=== PATIENT | male | born 1975 | race Caucasian/White ===

== ENCOUNTER 2022-09-06 10:33 | Emergency (ER) | payer OTHER ==
[2022-09-06] MEDS ORDERED: HYDROCODONE/APAP 7.5/325 MG TAB ONE (10:55)
[2022-09-06] MEDS ORDERED: BACI/NEOMYCIN/POLY OINT 15GM TOP ONE (10:55)
[2022-09-06] MEDS ORDERED: LIDOCAINE 1% 20 ML MDV ONE (10:55)
[2022-09-06] MEDS ORDERED: TETANUS & DIPHTHERIA TOX,ADULT 0.5 ML VIAL ONE (10:56)
--- NOTE | 2022-09-06 11:58 | RAD REPORT ---
EXAM DESCRIPTION: RAD - Hand Left 3 View - 09/06/2022 11:44 am CLINICAL HISTORY: lac, ?FB COMPARISON: No comparisons FINDINGS/IMPRESSION: No acute fracture. No malalignment. No significant focal degenerative changes.
[2022-09-06] MEDS ORDERED: DERMABOND SKIN ADHESIVE TOP ONE (12:38)
[2022-09-06] MEDS ORDERED: CEPHALEXIN 250 MG CAP ONE (12:49)
--- NOTE | 2022-09-06 13:11 | EDPHYS ---
Physician Documentation [facility] Name: Brendon Charles Age: 47 yrs Sex: Male : 1975 Arrival Date: 09/06/2022 Time: 10:33 Bed 4 Private MD: ED Physician Ata Kearney HPI: 09/06 10:41 This 47 yrs old Male presents to ER via EMS with complaints of L hand lac . jr11 10:41 Patient is a 47-year-old male that is right-hand dominant, tetanus over 10 years here jr11 with a laceration to his left hand. [place], tripped and fell and lacerated his left hand on a sharp brake/rock. Complains of mild to moderate pain to the laceration area, per EMS, was bleeding significantly but they got it to stop with a partial tourniquet meaning they did not blow it up all the way just with mild pressure. Denies any other injuries, no blood thinners no headache denies any other complaints. Historical: - Allergies: 10:38 No Known Allergies; bp - Home Meds: 10:38 None [Active]; bp - PMHx: 10:38 None; bp - Immunization history:: Adult Immunizations up to date. - Social history:: Smoking status: Patient denies any tobacco usage or history of. ROS: 10:41 All other systems are negative. jr11 Exam: 10:41 Constitutional: This is a well developed, well nourished patient who is awake, alert, jr11 and in no acute distress. Head/Face: Normocephalic, atraumatic. Eyes: Extra-ocular motions intact. Lids and lashes normal. Conjunctiva and sclera are non-icteric and not injected. Cornea within normal limits. Periorbital areas with no swelling, redness, or edema. ENT: Nares patent. No nasal discharge, no septal abnormalities noted. Oropharynx with no redness, swelling, or masses, exudates, or evidence of obstruction, uvula midline. Mucous membranes moist. Neck: Trachea midline, no thyromegaly or masses palpated, and no cervical lymphadenopathy. Supple, full range of motion without nuchal rigidity, or vertebral point tenderness. No Meningismus. Cardiovascular: Regular rate and rhythm with a normal S1 and S2. No gallops, murmurs, or rubs. Normal PMI, no JVD. No pulse deficits. Abdomen/GI: Soft, non-tender, with normal bowel sounds. No distension or tympany. No guarding or rebound. No evidence of tenderness throughout. Back: No spinal tenderness. No costovertebral tenderness. Full range of motion. Skin: 2 jagged lacerations, 1 mid palmar aspect on small finger base to distal hand approx 5 cm and also 6 cm lac to musc hypothenar eminence, states intact sensation MS/ Extremity: Pulses equal, no cyanosis. Neurovascular intact. Full, normal range of motion. Neuro: Awake and alert, GCS 15, oriented to person, place, time, and situation. No gross motor or sensory deficits. Vital Signs: 10:36 BP 145 / 88; Pulse 76; Resp 16; Temp 98; Pulse Ox 99% ; bp 11:58 BP 138 / 88; Pulse 80; Resp 16; Pulse Ox 99% ; hb 13:00 BP 141 / 75; Pulse 79; Resp 16; Pulse Ox 100% ; bp Procedures: 13:09 Splinting: Splint applied to palm of left hand using Orthoglass splint, applied by [facility] tech. post reduction film - Examined by me, post splint application: neurovascular intact, 2+ distal pulses palpable, brisk capillary refill noted, Patient tolerated well. Laceration: 12:58 Wound Repair of 13cm ( 5.1in ) full thickness laceration to left hand and palm of left jr11 hand. Irregularly shaped.. Arterial bleeding noted.. Distal neuro/vascular/tendon intact. Anesthesia: Local anesthetic administered with 10 mls of 1% lidocaine. Wound prep: Wound explored, Copious irrigation. Skin closed with 15 4-0 Prolene using simple sutures and sterile technique. Dressed with pressure dressing. Patient tolerated well. MDM: 10:38 Patient medically screened. jr11 10:41 Differential Diagnosis laceration, FB, sprain strain . Data reviewed: vital signs, 11 nurses notes. 12:58 Independent interpretation of the following test(s) in the Emergency Department X-Ray: jr11 My interpretation is no FB no FX. ED course: Pt with 1 small arteriole bleeder, stopped w figure of 8 w vicryl but oozing slightly, pt with full fuction of his hand, do not suspect nerve injury but will give ortho follow up. 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 Exp: bp 10/18/2023. Lot #: [id number]. } Route: IM; Site: right deltoid; 11:45 Follow up: Response: No adverse reaction hb 10:55 Drug: Hydrocodone-Acetaminophen PO (7.5 mg-325 mg) 1 tabs Route: PO; bp 11:45 Follow up: Response: No adverse reaction hb 10:55 Drug: Lidocaine Infiltration (1 %) 15 ml Volume: 20 ml; Route: Infiltration; bp 10:55 Drug: Ayuqrvim-Fkmuzvsixs-Bppmcbvpu Topical Ointment 1 application Route: Topical; bp Site: affected area; 12:30 Drug: Cephalexin PO 500 mg Route: PO; bp 13:01 Follow up: Response: No adverse reaction bp Disposition Summary: 09/06/22 13:11 Discharge Ordered Location: Home jr Condition: Stable jr11 Diagnosis - Hand Laceration/ Open wound of hand jr11 - Laceration without foreign body of left hand, initial encounter jr11 Followup: jr11 - With: Ino Barnes MD - When: 1 - 2 days - Reason: Re-evaluation by your physician Discharge Instructions: - Discharge Summary Sheet jr11 - Laceration Care, Adult jr11 Forms: - Medication Reconciliation Form jr11 - Thank You Letter jr11 - Antibiotic Education jr11 - Prescription Opioid Use jr11 Prescriptions: - Cephalexin 500 mg Oral Capsule - take 1 capsule by ORAL route every 8 hours for 10 days; 30 capsule; Refills: 0, jr11 Product Selection Permitted Signatures: Dispatcher [employer] Brendon Goodman, RN RN bp Ata Kearney MD MD jr11 Nancy Null RN hb
--- NOTE | 2022-09-06 13:11 | ER ---
Nurse's Notes [facility] Name: Brendon Charles Age: 47 yrs Sex: Male : 1975 Arrival Date: 09/06/2022 Time: 10:33 Bed 4 Private MD: Diagnosis: Hand Laceration/ Open wound of hand;Laceration without foreign body of left hand, initial encounter Presentation: 09/06 10:36 Chief complaint: EMS states: LEFT PALMAR LAC WITH ARTERIAL PULSATION OCCURRED IN MARINE bp ENVIRONMENT. Coronavirus screen: At this time, the client does not indicate any symptoms associated with coronavirus-19. Ebola Screen: No symptoms or risks identified at this time. Initial Sepsis Screen: Does the patient meet any 2 criteria? No. Patient's initial sepsis screen is negative. Does the patient have a suspected source of infection? No. Patient's initial sepsis screen is negative. Risk Assessment: Do you want to hurt yourself or someone else? Patient reports no desire to harm self or others. Onset of symptoms was September 06, 2022 at 09:57. Care prior to arrival: TOURNIQUET LEFT FA, BLEEDING CONTROLLED. 10:36 Method Of Arrival: EMS: [facility] bp 10:36 Acuity: KAYLA 3 bp Triage Assessment: 10:38 General: Appears in no apparent distress. Behavior is calm, cooperative, appropriate bp for age. Pain: Complains of pain in palm of left hand. EENT: No deficits noted. Neuro: No deficits noted. Cardiovascular: No deficits noted. Respiratory: No deficits noted. GI: No signs and/or symptoms were reported involving the gastrointestinal system. : No signs and/or symptoms were reported regarding the genitourinary system. Derm: No deficits noted. Musculoskeletal: No deficits noted. Injury Description: Laceration sustained to palm of left hand. Historical: - Allergies: 10:38 No Known Allergies; bp - Home Meds: 10:38 None [Active]; bp - PMHx: 10:38 None; bp - Immunization history:: Adult Immunizations up to date. - Social history:: Smoking status: Patient denies any tobacco usage or history of. Screenin:43 [facility] ED Fall Risk Assessment (Adult) History of falling in the last 3 months, bp including since admission No falls in past 3 months (0 pts). Abuse screen: Denies threats or abuse. Denies injuries from another. Nutritional screening: No deficits noted. Tuberculosis screening: No symptoms or risk factors identified. Assessment: 10:43 General: SEE TRIAGE NOTE. bp 11:09 Reassessment: Dr. Kearney at bedside for laceration repair. hb 11:58 Reassessment: Patient appears in no apparent distress at this time. Patient and/or hb family updated on plan of care and expected duration. Pain level reassessed. Patient is alert, oriented x 3, equal unlabored respirations, skin warm/dry/pink. 13:28 Reassessment: DC HOME AMBULATORY WITH FAMILY. bp Vital Signs: 10:36 BP 145 / 88; Pulse 76; Resp 16; Temp 98; Pulse Ox 99% ; bp 11:58 BP 138 / 88; Pulse 80; Resp 16; Pulse Ox 99% ; hb 13:00 BP 141 / 75; Pulse 79; Resp 16; Pulse Ox 100% ; bp ED Course: 10:34 Patient arrived in ED. eb 10:34 Ata Kearney MD is Attending Physician. jr11 10:36 Brendon Jackson, NYLA is Primary Nurse. bp 10:38 Triage completed. bp 10:38 Arm band placed on. bp 10:43 Patient has correct armband on for positive identification. Bed in low position. Call bp light in reach. Side rails up X2. 10:43 Maintain EMS IV. Dressing intact. Good blood return noted. Site clean \T\ dry. Gauge \T\ bp site: 18 GA R AC. 11:45 Hand Left 3 View XRAY In Process Unspecified. EDMS 12:30 Assist provider with laceration repair on palm of left hand that was between 7.6 to bp 12.5 cm using sutures. Set up tray. Performed by Ata Kearney MD Dressed with Eddie, Patient tolerated well. 12:30 IV discontinued, intact, bleeding controlled, No redness/swelling at site. Pressure bp dressing applied. 13:10 Ino Banres MD is Referral Physician. jr11 13:28 Orthoglass splint: Volar splint applied on left arm. 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 Exp: bp 10/18/2023. Lot #: [id number]. } Route: IM; Site: right deltoid; 11:45 Follow up: Response: No adverse reaction hb 10:55 Drug: Hydrocodone-Acetaminophen PO (7.5 mg-325 mg) 1 tabs Route: PO; bp 11:45 Follow up: Response: No adverse reaction hb 10:55 Drug: Lidocaine Infiltration (1 %) 15 ml Volume: 20 ml; Route: Infiltration; bp 10:55 Drug: Cufhhopu-Qicxqjgbuq-Ulcosaoff Topical Ointment 1 application Route: Topical; bp Site: affected area; 12:30 Drug: Cephalexin PO 500 mg Route: PO; bp 13:01 Follow up: Response: No adverse reaction bp Medication: 13:28 VIS not applicable for this client. bp Outcome: 13:11 Discharge ordered by . jr11 13:29 Discharged to home ambulatory, with family. bp 13:29 Condition: stable 13:29 Discharge instructions given to patient, Instructed on discharge instructions, follow up and referral plans. medication usage, wound care, Demonstrated understanding of instructions, follow-up care, medications, wound care, splint care, Prescriptions given X 1. 13:29 Patient left the ED. bp Signatures: Dispatcher [employer] EDMS Nancy Null RN RN Brendon Bryan, RN RN Jayashree Peralta Jose, MD MD jr11
[2022-09-06 13:35] VITALS: TEMP 98
[2022-09-06 13:37] VITALS: BP 141/75; O2SAT 100
== END 2022-09-06 13:29 | disposition home or self-care (01) ==
LOC: ER 10:33
PROC: 0HQGXZZ Repair Left Hand Skin, External Approach (ICD-10-PCS; principal; 2022-09-06)
PROC: 2W3FX1Z Immobilization of Left Hand using Splint (ICD-10-PCS; 2022-09-06)
DX: S61.412A Laceration without foreign body of left hand, initial encounter (principal); Z23 Encounter for immunization
CPT/HCPCS: 73130; 90471; 90714; 99284; 12005; 29125; J2001